=== PATIENT | female | born 1990 ===

== ENCOUNTER 2022-01-14 01:38 | Inpatient (IN) | payer MEDICAID ==
[2022-01-14] MEDS ORDERED: Acetaminophen 500 MG Tab PO ONE (02:11)
[2022-01-14] MEDS ORDERED: Butorphanol 1 MG/ML SDV IVPUSH PRN (04:45)
[2022-01-14] MEDS ORDERED: Misoprostol 200 MCG Tab PO PRN (04:45)
[2022-01-14] MEDS ORDERED: Lidocaine 1% 50 ML MDV INJECT PRN (04:45)
[2022-01-14] MEDS ORDERED: Ondansetron 4 MG/2 ML SDV IVPUSH PRN ×3 (04:45→12:51)
[2022-01-14] MEDS ORDERED: Sodium Chloride 0.9% 10 ML Syringe FLUSH PRN (04:45)
[2022-01-14] MEDS: Lactated Ringers 1,000 ML IV SCH ×4 (04:45→21:51)
[2022-01-14] MEDS ORDERED: Oxytocin/0.9 % Sodium Chloride 30 UNIT/500 ML BAG IV SCH (04:45)
[2022-01-14] MEDS ORDERED: Methylergonovine 0.2 MG/1 ML Amp IM PRN (04:45)
[2022-01-14] MEDS ORDERED: Sodium Chloride 0.9% 20 ML SDV IV PRN (04:45)
[2022-01-14] MEDS ORDERED: Tranexamic Acid 1,000 MG in Sodium Chloride 0.9% 100 ML IV PRN (04:45)
[2022-01-14] MEDS ORDERED: Carboprost Tromethamine 250 MCG/1 ML Amp IM PRN (04:45)
[2022-01-14] MEDS ORDERED: Sodium Chloride 0.9% 2.5 ML Syringe FLUSH PRN (04:45)
[2022-01-14] MEDS ORDERED: Water For Irrigation,Sterile 1,000 ML Container IRR PRN (04:45)
[2022-01-14] MEDS ORDERED: Lidocaine 2% with EPINEPHrine 1:200,000 20 ML SDV ONE (05:33)
[2022-01-14] MEDS ORDERED: Phenylephrine 1% 10 MG/ML SDV ONE (05:47)
[2022-01-14] MEDS ORDERED: Ropivacaine HCl/PF 400 MG in Premix Bag 1 BAG EPIDUR SCH (06:00)
[2022-01-14] MEDS ORDERED: ePHEDrine 50 MG/ML SDV IVPUSH PRN ×3 (06:00→12:51)
[2022-01-14] MEDS ORDERED: ceFAZolin 1 GM Vial ONE (12:11)
[2022-01-14] MEDS ORDERED: Oxytocin 10 Units/1 ML SDV ONE ×2 (12:11→12:51)
[2022-01-14] MEDS ORDERED: Ondansetron 4 MG/2 ML SDV ONE (12:11)
[2022-01-14] MEDS ORDERED: Dexamethasone 4 MG/ML 5 ML MDV ONE (12:11)
[2022-01-14] MEDS ORDERED: Azithromycin 500 MG Vial ONE (12:22)
[2022-01-14] MEDS ORDERED: Water For Injection, Sterile 20 ML ONE (12:23)
[2022-01-14] MEDS ORDERED: fentaNYL 100 MCG/2 ML SDV ONE (12:34)
[2022-01-14] MEDS ORDERED: Midazolam 1 MG/ML 2 ML SDV ONE (12:34)
[2022-01-14] MEDS ORDERED: Octyl 2-Cyanoacrylate 1 Tube ONE (12:50)
[2022-01-14] MEDS ORDERED: Acetaminophen/oxyCODONE 325-5 MG Tab PO PRN (12:51)
[2022-01-14] MEDS ORDERED: Albuterol 0.083% 2.5 MG/3 ML Neb Soln NEB PRN (12:51)
[2022-01-14] MEDS ORDERED: fentaNYL 50 MCG/ML SDV IVPUSH PRN (12:51)
[2022-01-14] MEDS ORDERED: fentaNYL 100 MCG/2 ML SDV IVPUSH PRN (12:51)
[2022-01-14] MEDS ORDERED: Morphine 4 MG/ML VIAL IVPUSH PRN (12:51)
[2022-01-14] MEDS ORDERED: Naloxone 0.4 MG/ML SDV IVPUSH PRN (12:51)
[2022-01-14] MEDS ORDERED: HYDROmorphone 1 MG/ML Syringe IVPUSH PRN (12:51)
[2022-01-14] MEDS ORDERED: Metoclopramide 10 MG/2 ML SDV IVPUSH PRN (12:51)
[2022-01-14] MEDS ORDERED: diphenhydrAMINE 50 MG/ML SDV IVPUSH PRN (12:51)
[2022-01-14] MEDS ORDERED: Morphine PF 10 MG/10 ML SDV ONE (13:04)
[2022-01-14] MEDS ORDERED: Ropivacaine 0.5% 5 MG/ML 30 ML SDV ONE (13:19)
[2022-01-14] MEDS: Acetaminophen 1,000 MG in Premix Bag 1 BAG IV SCH (20:18)
[2022-01-14] MEDS: Ketorolac 30 MG/ML SDV IVPUSH SCH (20:40)
[2022-01-15] MEDS: Acetaminophen 1,000 MG in Premix Bag 1 BAG IV SCH ×3 (02:05→13:59)
[2022-01-15] MEDS: Ketorolac 30 MG/ML SDV IVPUSH SCH ×3 (03:30→15:28)
[2022-01-15] MEDS: Lactated Ringers 1,000 ML IV SCH (03:36)
[2022-01-15] MEDS: Docusate Sodium 100 MG Cap PO SCH ×2 (09:34→20:12)
[2022-01-15] MEDS: Ibuprofen 800 MG Tab PO PRN (20:57)
[2022-01-16] MEDS: Ibuprofen 800 MG Tab PO PRN (02:57)
[2022-01-16] MEDS: Docusate Sodium 100 MG Cap PO SCH (10:05)
== END 2022-01-16 16:25 | disposition home or self-care (01) | DRG 788 ==
LOC: MW.OBCHECK 01:38 → MW.OB 01:39 → MW.OBCHECK 12:28 → OBSVTOIN 12:29 → MW.OB 17:42
PROVIDERS: ADMIT Obstetrics & Gynecology; ATTEND Obstetrics & Gynecology
PROC: 10D00Z1 Extraction of Products of Conception, Low, Open Approach (ICD-10-PCS; principal; 2022-01-14)
PROC: 3E0R3BZ Introduction of Anesthetic Agent into Spinal Canal, Percutaneous Approach (ICD-10-PCS; 2022-01-14)
PROC: 00HU33Z Insertion of Infusion Device into Spinal Canal, Percutaneous Approach (ICD-10-PCS; 2022-01-14)
DX: O76 Abnormality in fetal heart rate and rhythm complicating labor and delivery (principal); Z37.0 Single live birth; Z3A.40 40 weeks gestation of pregnancy; O99.344 Other mental disorders complicating childbirth; O48.0 Post-term pregnancy; F41.9 Anxiety disorder, unspecified; Z20.822 Contact with and (suspected) exposure to COVID-19
CPT/HCPCS: 01967; 01968; 36415; 51702; 59025; 64488; 85027; 86592; 86850; 86900; 86901; A9270-GY; J0131; J0456; J0690; J1100; J1885; J2250; J2274; J2370; J2405; J2590; J2795; J3010; J7120; U0002